=== PATIENT | female | born 1985 | race Hispanic/Latino ===

== ENCOUNTER 2020-04-11 10:00 | Outpatient (CLI) | payer OTHER ==
--- NOTE | 2020-04-11 10:56 | ULT ---
ULTRASOUND OBSTETRICAL COMPLETE: DATE: 04/11/2020 HISTORY: 34-year-old female with "high-risk ." Evaluate anatomy. FINDINGS: number: kiran lie: Cephalic Maternal cervix: 4 cm. Closed. Placenta: Anterior. No placenta previa. Amniotic fluid volume: RAYA = 14.5 cm heart rate: 127 bpm The following anatomy is visualized, with no evidence of anomalies: Head, cerebellum, lateral ventricles, four-chamber heart, stomach, kidneys, cord insertion, bladder, cervical spine, thoracic spine, lumbar spine, sacrum, nose and lips, upper extremities, lower extremities, and three-vessel cord. biometry: Biparietal diameter (BPD): 4.7 cm 20 w 2 d Head circumference (HC): 17.8 cm 20 w 3 d Abdominal circumference (AC): 15.1 cm 20 w 3 d Femur length (FL): 3.3 cm 20 w 2 d Average ultrasound age (AUA): 20 w 3 d Estimated date of delivery (ELISABET): 08/26/2020 Estimated weight (EFW): 342 g +/- 50 g IMPRESSION: 1) Live 2nd trimester intrauterine gestation. 2) Estimated gestational age of 20 weeks, 3 days 3) cephalic lie. 4) no anatomic abnormality identified.
== END 2020-04-11 10:01 | disposition home or self-care (01) ==
LOC: BICULT 10:00
PROVIDERS: ATTEND Family Medicine
DX: O09.91 Supervision of high risk pregnancy, unspecified, first trimester (principal); Z3A.20 20 weeks gestation of pregnancy
CPT/HCPCS: 76805

== ENCOUNTER 2020-08-17 09:06 | Outpatient (CLI) | payer OTHER ==
[2020-08-17 17:22] LABS: SARS-CoV-2 MS2 Positive; SARS-CoV-2 N Gene Negative; SARS-CoV-2 S Gene Negative; SARS-CoV-2 by NAA Not Detected (NotDetected); SARS-CoV-2 orf1ab Negative
== END 2020-08-17 09:07 | disposition home or self-care (01) ==
LOC: LABBT 09:06
PROVIDERS: ATTEND Family Medicine
DX: Z20.828 Contact with and (suspected) exposure to other viral communicable diseases (principal)
CPT/HCPCS: 87635; U0003

== ENCOUNTER 2020-08-20 10:04 | Inpatient (IN) | payer MEDICAID, OTHER, SELFPAY ==
[2020-08-20] MEDS ORDERED: Bicitra 30 ML UDCUP PO SCH (10:27)
[2020-08-20] MEDS ORDERED: Lactated Ringer's 1,000 ML IV SCH (10:27)
[2020-08-20] MEDS ORDERED: Ondansetron PF 4 MG/2 ML Vial IVP PRN ×2 (10:27→15:54)
[2020-08-20] MEDS ORDERED: CEFAZOLIN 2 GM in Premix Bag 1 BAG IVPB SCH (10:27)
[2020-08-20] MEDS ORDERED: hydrALAZINE 20 MG/ML VIAL SLOW IVP PRN ×2 (10:27→15:54)
[2020-08-20] MEDS ORDERED: Promethazine HCl 25 MG/ML VIAL IM PRN ×2 (10:27→15:54)
[2020-08-20 11:16] VITALS: BMI 27.9
[2020-08-20] MEDS ORDERED: Oxytocin 10 UNITS/ML VIAL ONE (11:16)
[2020-08-20 11:28] LABS: Hemoglobin 13.5 g/dL (12.0-16.0); Mean Corpuscular HGB CONC 33.9 g/dL (32.0-36.0); Mean Corpuscular Hemoglobin 31.9 pg (27.0-31.0); Mean Platelet Volume 7.9 fL (7.4-10.4); Platelet Count 139 thou/uL (130-400); RBC Distribution Width 13.9 % (11.5-14.5); Red Blood Cell (RBC) Count 4.22 mill/uL (4.20-5.40); White Blood Cell (WBC) Count 6.5 thou/uL (4.8-10.8)
[2020-08-20 12:10] LABS: HBSAg Index 0.18 S/CO (0-0.99); Hep B Surf Ag Non-Reactive S/CO (NonReactive); Syphilis Antibody Nonreactive (Nonreactive); Syphilis Antibody Index 0.03 S/CO (<1.00 Non-Reactive)
[2020-08-20] MEDS ORDERED: L&D-Morphine 4 MG/ML VIAL SLOW IVP PRN (13:21)
[2020-08-20] MEDS ORDERED: Meperidine HCl/PF 25 MG/ML VIAL SLOW IVP PRN (13:21)
[2020-08-20] MEDS ORDERED: Ondansetron HCl/PF 4 MG/2 ML Vial IVP PRN (13:21)
[2020-08-20] MEDS ORDERED: HYDROmorphone 2 MG/ML VIAL SLOW IVP PRN (13:21)
[2020-08-20] MEDS ORDERED: Ketorolac Tromethamine 30 MG/ML VIAL IVP SCH (13:30)
[2020-08-20] MEDS ORDERED: NS / Oxytocin 40 units/1000ml 1,000 ML ONE (13:52)
[2020-08-20] MEDS ORDERED: Meperidine HCl/PF 25 MG/ML VIAL ONE (14:11)
[2020-08-20] MEDS ORDERED: Simethicone Chewable 80 MG TAB PO PRN (15:54)
[2020-08-20] MEDS ORDERED: Meperidine HCl/PF 25 MG/ML VIAL IM PRN (15:54)
[2020-08-20] MEDS ORDERED: NS / Oxytocin 40 units/1000ml 1,000 ML IV SCH (15:54)
[2020-08-20] MEDS ORDERED: diphenhydrAMINE 25 MG CAP PO PRN (15:54)
[2020-08-20] MEDS ORDERED: Adacel (T-DAP) 0.5 ML SYRINGE IM ONE (15:54)
[2020-08-20] MEDS ORDERED: Bisacodyl 10 MG SUPP PR PRN (15:54)
[2020-08-20] MEDS ORDERED: Lanolin Ointment 7 GM TUBE TOP PRN (15:54)
[2020-08-20] MEDS: Ketorolac Tromethamine 30 MG/ML VIAL IVP SCH (16:51)
--- NOTE | 2020-08-20 17:18 | PDOC.OPDEL ---
OB Operative/Delivery Note Delivery Dr/Surgeon: Pankaj Assist: Susie Pre-Delivery Diagnosis: scheduled section Procedure/Post Delivery Dx: repeat low transverse CS Weeks gestation: 39 Anesthesia: spinal - Findings A Sex: female - 1 min: 8 - 5 min: 9 - Additional Findings/Plan Placenta delivered: spontaneous findings: low transverse hysterotomy without extension, normal uterus, normal tubes, normal ovaries Estimated blood loss: 910 Compilations/Other Findings: Date of Procedure: 08/20/20 Resident Surgeon: Susie Attending Surgeon: Pankaj Procedure: Repeat low transverse caesarean section Preoperative Diagnosis: 1) 39 weeks 2) previous C/S x 1, declines trial of labor Postoperative Diagnosis: 1) previous C/S, delivered Anesthesia: spinal Indications: The patient is a 34 year old female at 39.0 weeks gestation who presents for scheduled rLTCS. Procedure in Detail: After risks, benefits, and alternatives were explained to the patient, she gave informed consent. Pre-operative antibiotics included Cefazolin 2 gram IV. The patient was taken to the operating room and spinal anesthesia was initiated. She was placed in the supine position with a left tilt and prepped and draped in usual sterile fashion. Initial spinal testing was positive for patient pain, thus patient was undraped, and spinal anesthesia reinitiated. Patient was repositioned in the supine position with left tilt and prepped and draped in usual sterile fashion. Pain testing was negative. A Pfannenstiel incision was made with a scalpel over the previous scar and carried down to the level of the fascia which was sharply nicked. Small areas of bleeding were controlled with bovie electrocautery. The fascial cut was extended bilaterally with Shine scissors. The inferior and superior edges of the cut fascial edges were elevated with Marcellus clamps and the underlying rectus muscles were sharply and bluntly dissected free. The recti were divided with blunt dissection and retracted manually. The peritoneum was entered bluntly and retracted manually. Bladder blade was placed. A low transverse score was made with a new, clean scalpel and the uterus was entered in the midline bluntly. The hysterotomy was extended manually. The infant was noted to be vertex and was easily delivered by fundal pressure @ 1258. Mouth and nares were bulb suctioned. Cord clamped and cut and grossly normal female was handed to waiting nurse. Cord blood was obtained. Placenta was manually extracted, found to be intact with 3 vessel cord and discarded. The uterus was externalized and the endometrium was curetted with a dry lap. The bladder blade was replaced and the uterus was closed with a running locking #1 Monocryl. Hysterotomy was noted to have areas of small bleeding. Multiple Figure of 8 sutures with #1 Monocryl were placed and still areas of small bleeding noted. A running, nonlocking, imbricating suture was placed over the initial hysterotomy closure with an 0- Vicryl. Following this hemostasis was noted. The abdomen was irrigated with saline and suctioned free of clots. Seprafilm was placed over the anterior aspect of the uterus. The uterus was internalized and the hysterotomy was again noted to be hemostatic. Peritoneum was reapproximated with a running, non- locking 3-0 Vicryl. The fascia was then closed with a running non-locking 1-PDS suture. The subcutaneous tissue was irrigated and there were no bleeders. The subcutaneous tissue was reapproximated with interrupted vertical mattress sutures using 3-0 Vicryl. The skin was approximated with silvina and a pressure dressing was placed. All counts were correct. The patient tolerated the procedure well and was taken to the recovery room in stable condition. QBL: 910cc Complications: None Specimens: Cord blood sent to lab for blood type. Findings: Grossly normal female with Apgars of 8 and 9. Grossly normal placenta with 3 vessel cord. Drains: Silva to gravity draining clear urine Post delivery plan: routine recovery
[2020-08-20] MEDS: Ferrous Sulfate 325 MG TAB PO SCH (21:00)
[2020-08-20] MEDS: Docusate Calcium (SURFAK) 240 MG CAP PO SCH (21:00)
[2020-08-21] MEDS: Ketorolac Tromethamine 30 MG/ML VIAL IVP SCH ×2 (00:04→06:02)
[2020-08-21 06:21] LABS: Hemoglobin 11.5 g/dL (12.0-16.0); Mean Corpuscular HGB CONC 34.1 g/dL (32.0-36.0); Mean Corpuscular Hemoglobin 31.8 pg (27.0-31.0); Mean Corpuscular Volume 93.2 fL (78.0-98.0); Mean Platelet Volume 7.8 fL (7.4-10.4); Platelet Count 128 thou/uL (130-400); RBC Distribution Width 13.7 % (11.5-14.5); Red Blood Cell (RBC) Count 3.63 mill/uL (4.20-5.40); White Blood Cell (WBC) Count 8.2 thou/uL (4.8-10.8)
[2020-08-21] MEDS: Prenatal Vitamin 1 TAB PO SCH (09:02)
[2020-08-21] MEDS: Docusate Calcium (SURFAK) 240 MG CAP PO SCH ×2 (09:02→20:59)
[2020-08-21] MEDS: HYDROcodone/Acetaminophen 5/325 mg Tablet PO PRN ×3 (09:02→21:48)
[2020-08-21] MEDS: Ferrous Sulfate 325 MG TAB PO SCH ×2 (09:04→21:00)
[2020-08-21] MEDS: Ibuprofen 800 MG TAB PO SCH ×2 (12:54→20:59)
[2020-08-22] MEDS: Ibuprofen 800 MG TAB PO SCH ×2 (06:02→14:27)
[2020-08-22] MEDS: Ferrous Sulfate 325 MG TAB PO SCH (10:37)
[2020-08-22] MEDS: Docusate Calcium (SURFAK) 240 MG CAP PO SCH (10:37)
[2020-08-22] MEDS: Prenatal Vitamin 1 TAB PO SCH (10:37)
[2020-08-22] MEDS: HYDROcodone/Acetaminophen 5/325 mg Tablet PO PRN ×2 (10:41→14:26)
[2020-08-22 12:17] VITALS: BP 120/56; TEMP 99.7
== END 2020-08-22 15:00 | disposition home or self-care (01) | DRG 788 ==
LOC: L&D-LIB 10:04 → L&D 13:38 → 3SW 15:29
PROVIDERS: ADMIT Family Medicine; ATTEND Family Medicine
PROC: 10D00Z1 Extraction of Products of Conception, Low, Open Approach (ICD-10-PCS; principal; 2020-08-20)
DX: O34.219 Maternal care for unspecified type scar from previous cesarean delivery (principal); Z3A.39 39 weeks gestation of pregnancy; Z37.0 Single live birth
CPT/HCPCS: 36415; 85027; 86780; 86850; 86900; 86901; 87340; J0690; J1885; J2175; J2270; J2405

== ENCOUNTER 2021-09-04 09:57 | Outpatient (CLI) | payer OTHER | END 2021-09-04 09:58 | disposition home or self-care (01) | LOC: BICULT 09:57 | PROVIDERS: ATTEND Family Medicine | DX: O09.522 Supervision of elderly multigravida, second trimester (principal); Z3A.19 19 weeks gestation of pregnancy | CPT/HCPCS: 76805 ==